=== PATIENT | male | born 2005 | race Caucasian/White ===

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

== ENCOUNTER → 2023-12-13 | Outpatient (CLI) | payer BC, SELFPAY | LOC: M WHC 09:14 | PROVIDERS: ATTEND Internal Medicine | DX: N62 Hypertrophy of breast (principal); N63.41 Unspecified lump in right breast, subareolar | CPT/HCPCS: 77066; G0279 ==

== ENCOUNTER → 2023-12-13 | Outpatient (CLI) | payer BC | LOC: M LAB 08:26 | PROVIDERS: ATTEND Internal Medicine | DX: E27.8 Other specified disorders of adrenal gland (principal) ==

== ENCOUNTER 2023-12-28 08:50 | Emergency (ER) | payer BC ==
[~2023-12-28] VITALS: Ht 172.7 cm; Wt 70.5 kg
[2023-12-28] MEDS ORDERED: SERT25TA21 (09:00)
[2023-12-28] MEDS ORDERED: CLON0.2T (09:00)
[2023-12-28] MEDS: LIDOCAINE 1% MDV 20ML VIAL SC ONE (09:46)
[2023-12-28] MEDS: KETOROLAC 30 MG/ML 1ML VIAL IM ONE (09:47)
[2023-12-28] MEDS: BOOSTRIX VACCINE (TETANUS/DIPHTH/ACEL. PERTUSSIS) 0.5ML SYR IM ONE (09:48)
[2023-12-28 11:00] VITALS: BP 132/82; TEMP 98.5; O2SAT 99
== END 2023-12-28 11:12 | disposition home or self-care (01) ==
LOC: M ED 08:50
DX: S91.312A Laceration without foreign body, left foot, initial encounter (principal); W29.3XXA Contact with powered garden and outdoor hand tools and machinery, initial encounter; Z79.899 Other long term (current) drug therapy; Z23 Encounter for immunization; Y92.009 Unspecified place in unspecified non-institutional (private) residence as the place of occurrence of the external cause; Y93.89 Activity, other specified; Y99.9 Unspecified external cause status
CPT/HCPCS: 12002; 73630; 90471; 90715; 96372; 99284; J1885

== ENCOUNTER → 2024-01-08 | Outpatient (REF) | payer BC ==
[~2024-01-08] MED LIST: CLON0.2T; SERT25TA21
== END ==
LOC: M LAB REF 17:19
PROVIDERS: ATTEND Pediatrics
DX: S91.322D Laceration with foreign body, left foot, subsequent encounter (principal)

== ENCOUNTER → 2024-01-17 | Outpatient (REF) | payer BC | LOC: M LAB REF 16:04 | PROVIDERS: ATTEND Internal Medicine | DX: E27.8 Other specified disorders of adrenal gland (principal) ==

== ENCOUNTER → 2024-01-18 | Outpatient (REF) | payer BC | LOC: M LAB REF 16:06 | PROVIDERS: ATTEND Internal Medicine | DX: E27.8 Other specified disorders of adrenal gland (principal) ==